=== PATIENT | female | born 1995 | race Caucasian/White ===

== ENCOUNTER 2017-03-06 21:45 | Outpatient (CLI) | payer OTHER ==
[~2017-03-06] VITALS: Ht 161.3 cm; Wt 123.6 kg
[~2017-03-06 21:45] MED LIST: CIPR500T4 PO; HYDR-3498 PO; ONDA4TAB35 PO; [UNRECOGNIZED DRUG - REMARK]
[2017-03-06] MEDS ORDERED: PREN1TAB79 PO (21:50)
[2017-03-06 21:51] VITALS: Ht 161.3 cm; Wt 123.6 kg
[2017-03-06 21:58] VITALS: BP 127/60; PULSE 97; RESP 20
--- NOTE | 2017-03-06 22:13 | PN ---
Date/Time of Note Date/Time of Note DATE: 03/06/17 TIME: 21:58 OB Subjective Subjective Subjective 21 yo P1 @ 36 wks, presents w abdominal and back pain no VB, no LOF, no ctx, good FM OB Objective Objective Objective Nml VS abdomen- gravid, n/t SVE- to be performed by nurse FHT- Cat I [place]- no ctx Abdomen: WNL Accelerations: Accelerations Present Decelerations: No Decelerations Varibility: Moderate Contractions on Admission: None OB Assessment/Plan Other Assessment: 21 yo P1 @ 36 wks, w back pain - reassuring status - not in labor Other plan: patient is 1/l/p not candido; reassuring status d/c home after 20 min NST LEXII SALAZAR MD Mar 06, 2017 22:13
--- NOTE | 2017-03-06 22:37 | TRIAGE ---
OB Triage Datetime Report Generated by CPN: 03/06/2017 22:37 Datetime: 03/06/2017 22:02 Vaginal Exam Dilatation (cms): 0.0 Effacement (%): 50 Station: -4 Exam By: CHARMAINE Hanson Membrane Status: Intact Vaginal Bleeding: None Cervix, Consistency: Moderate Cervix, Position: Posterior Datetime: 03/06/2017 21:56 Stage of : OB Triage Assessment Type: Triage Maternal Assessment Level of Consciousness: Fully Conscious DTR's/Clonus: DTRs 2+; No Clonus Headache: Denies Blurred Vision: No Respiratory Effort: Unlabored; Regular Rhythm; Equal Expansion Breath Sounds, Left: Clear and Equal Breath Sounds, Right: Clear and Equal Nausea/Vomiting: Denies RUQ Epigastric Pain: Denies Lower Extremities Edema: Bilateral Lower Extremities Degree: 1+ Upper Extremities Edema: None Degree: None Facial Edema: None Temperature Route: Oral Fall Risk Assessment History of Falling: (0) No Secondary Diagnosis: (0) No Ambulatory Aid: (0) Bedrest/Nurse Assist IV Therapy: (0) No Gait: (0) Normal/Bedrest/Immobile Mental Status: (0) Oriented to Own Ability Fall Score: 0 Fall Risk Score Definition: No Risk: No action required Datetime: 03/06/2017 21:55 Labor Evaluation Monitor Mode: External Contraction Comments: [place] applied Heart Rate FHR Baseline Rate: 155 Monitor Mode: External US Comments: EFM applied Datetime: 03/06/2017 21:48 Time of Arrival: 03/06/2017 21:40 EGA: 36.0 Arrived By: Ambulatory Arrived From: Home Chief Complaint: Constant abd pain _ pressure Movement: Present Contractions: Denies/Absent Rupture of Membranes: Denies Vaginal Bleeding: None Vaginal Discharge: Denies Recent Sexual Intercouse: Denies Abdominal Trauma: Not Applicable Patient Complaints: Other Time Provider Notified: 03/06/2017 21:43 Provider Notified: Initial Plan: SUN GIBBS
== END 2017-03-06 22:30 | disposition home or self-care (01) ==
LOC: OBT 21:45 → L-D 21:46 → OBT 22:30
PROVIDERS: ATTEND Obstetrics & Gynecology
DX: O26.893 Other specified pregnancy related conditions, third trimester (principal); R10.9 Unspecified abdominal pain; M54.9 Dorsalgia, unspecified; Z3A.36 36 weeks gestation of pregnancy
CPT/HCPCS: 59025; Z7500; G0463

== ENCOUNTER 2017-04-03 12:56 | Outpatient (CLI) | payer OTHER ==
[~2017-04-03] VITALS: Ht 160 cm; Wt 122.6 kg
[~2017-04-03 12:56] MED LIST changes: -CIPR500T4 PO; -HYDR-3498 PO; -ONDA4TAB35 PO; +PREN1TAB79 PO; -[UNRECOGNIZED DRUG - REMARK]
--- NOTE | 2017-04-03 14:16 | CONS ---
Date/Time of Note Date/Time of Note DATE: 04/03/17 TIME: 14:13 Assessment/Plan Assessment/Plan Additional Assessment/Plan 21 y/o at 40 weeks with contractions -recheck cervix in 1-2 hours -discharge home if not in active labor -f/u with OB clinic Consultation Date/Type/Reason Admit Date/Time Reason for Consultation Contractions Hx of Present Illness 21 y/o at 40 weeks who presents with contractions. Denies LOF, VB, dysuria. +FM. Getting PNC at [facility] but wants to deliver here. h/ o x1. Per HPI. Other systems negative. Past Medical History Medical History: no pertinent history Past Surgical History Past Surgical Hx: no surgical history Social History Denies habits. Exam/Review of Systems Exam Gen: NAD HEENT: NCAT CV: RRR Pulm: CTAB Abd: gravid, NT Back: no CVAT Ext: NT SVE: 1/long/-2 FHT: reactive [place]: irregular MOHAN Andrews April 03, 2017 14:16
[2017-04-03 14:21] VITALS: BP 116/56; PULSE 65; RESP 18; Ht 160 cm; Wt 122.6 kg
--- NOTE | 2017-04-03 15:58 | RADRPT ---
PROCEDURE: US OB biophysical profile. CLINICAL INDICATION: decreased movements, pain TECHNIQUE: Multiple sonographic images of the pelvis were obtained. The images were reviewed on a PACS workstation. COMPARISON: No prior studies are available for comparison. FINDINGS: There is a single viable intrauterine gestation. Cardiac activity is present with 134 beats per min kane. There is a vertex presentation. The placenta is fundal. There is no evidence of placental abruption. There is a normal amount of amniotic fluid with an MIGUEL = 10.4 cm. Biophysical profile: movement 2/2 tone 2/2. breathing 2/2 MIGUEL 2/2 Total 06/30 RPTAT: AA . IMPRESSION: Normal biophysical profile. . .Mati Callahan MD, Date Time Electronically viewed and signed by .Mati Callahan MD, MD on 04/03/2017 15:57 .S/
--- NOTE | 2017-04-03 17:02 | TRIAGE ---
OB Triage Datetime Report Generated by CPN: 04/03/2017 17:02 Datetime: 04/03/2017 14:03 Labor Evaluation Frequency: 4-5 Monitor Mode: External Duration (sec)2399: 50-70 Quality: Moderate Pattern: Normal: <= 5 Contractions in 10 Minutes Resting Tone [place]: Relaxed Contraction Comments: nst reactive for gestational age Heart Rate FHR Baseline Rate: 135 Monitor Mode: External US Variability: Moderate 6-25 bpm Accelerations: 15X15 Decelerations: None Category: Category I Datetime: 04/03/2017 13:45 Time of Arrival: 04/03/2017 12:54 EGA: 39.3 Arrived By: Ambulatory Arrived From: Home Chief Complaint: UC'S /VAGINAL PRESSURE Movement: Present Contractions: Irregular Rupture of Membranes: Denies Vaginal Bleeding: None Vaginal Discharge: Denies Recent Sexual Intercouse: Denies Abdominal Trauma: Not Applicable Patient Complaints: Contractions; Back Pain Time Provider Notified: 04/03/2017 13:15 Provider Notified: DR. CARVER Initial Plan: SVE, BPP, NST Datetime: 04/03/2017 13:00 Stage of : OB Triage Maternal Assessment Level of Consciousness: Fully Conscious DTR's/Clonus: DTRs 2+; No Clonus Headache: Denies Blurred Vision: No Respiratory Effort: Unlabored; Regular Rhythm; Equal Expansion Breath Sounds, Left: Clear and Equal Breath Sounds, Right: Clear and Equal Nausea/Vomiting: Denies RUQ Epigastric Pain: Denies Lower Extremities Edema: Bilateral Lower Extremities Degree: 1+ Upper Extremities Edema: None Degree: None Facial Edema: None Temperature Route: Axillary Fall Risk Assessment History of Falling: (0) No Secondary Diagnosis: (0) No Ambulatory Aid: (0) Bedrest/Nurse Assist IV Therapy: (0) No Gait: (0) Normal/Bedrest/Immobile Mental Status: (0) Oriented to Own Ability Fall Score: 0 Fall Risk Score Definition: No Risk: No action required Datetime: 03/06/2017 22:22 Stage of : OB Triage Labor Evaluation Frequency: Occasional Monitor Mode: External Duration (sec)2399: 40 Quality: Mild Pattern: Normal: <= 5 Contractions in 10 Minutes Resting Tone [place]: Relaxed Heart Rate FHR Baseline Rate: 155 Monitor Mode: External US Variability: Moderate 6-25 bpm Accelerations: 15X15 Decelerations: None Category: Category I Datetime: 03/06/2017 22:15 Stage of : OB Triage Datetime: 03/06/2017 21:56 Fall Score: 0 Fall Risk Score Definition: No Risk: No action required Pain Assessment Pain Scale: 4 Pain Presence: Constant Pain Type: Pressure; Ache Pain Location: Abdomen Pain Relief Measures: Comfort Measures Datetime: 03/06/2017 21:48 EGA: 35.3
== END 2017-04-03 15:55 | disposition home or self-care (01) ==
LOC: OBT 12:56 → L-D 12:57 → OBT 15:55
PROVIDERS: ATTEND Obstetrics & Gynecology
DX: O62.9 Abnormality of forces of labor, unspecified (principal); Z3A.40 40 weeks gestation of pregnancy
CPT/HCPCS: 76818; Z7500; G0463

== ENCOUNTER 2017-04-04 06:57 | Inpatient (IN) | payer OTHER ==
[~2017-04-04] VITALS: Ht 167.6 cm; Wt 122.7 kg
[2017-04-04 07:29] VITALS: BP 126/61; PULSE 70; RESP 18
[2017-04-04] MEDS ORDERED: METHYLERGONOVINE 0.2 MG INJ IM PRN ×2 (08:00→15:00)
[2017-04-04] MEDS ORDERED: LACTATED RINGER'S 1,000 ML IV PRN (08:00)
[2017-04-04] MEDS ORDERED: CARBOPROST 250 MCG INJ IM PRN ×2 (08:00→15:00)
[2017-04-04] MEDS ORDERED: BUTORPHANOL 2 MG INJ IV PRN (08:00)
[2017-04-04] MEDS ORDERED: OXYTOCIN 30 UNITS/LR 500 ML IV SCH ×2 (08:00)
[2017-04-04] MEDS ORDERED: LIDOCAINE 1% (MPF) 30 ML INJ INJ PRN (08:00)
[2017-04-04] MEDS ORDERED: OXYTOCIN 30 UNITS/LR 500 ML IV PRN ×2 (08:00→15:00)
[2017-04-04] MEDS ORDERED: MISOPROSTOL 200 MCG TAB PR PRN ×2 (08:00→15:00)
[2017-04-04] MEDS ORDERED: AMPICILLIN 2 GM/NS (PMX) 100 ML IV ONE (08:00)
[2017-04-04] MEDS ORDERED: IBUPROFEN 600 MG TAB PO PRN (08:00)
[2017-04-04] MEDS: LACTATED RINGER'S 1,000 ML IV SCH ×3 (08:13→23:32)
[2017-04-04 08:16] LABS: ADD SCAN DIFF NO
[2017-04-04 08:21] LABS: ABNORMAL IP MESSAGE 1; BASOPHILS % 0.3 % (0.0-2.0); EOSINOPHILS # 0.2 10^3/ul (0.0-0.5); EOSINOPHILS % 1.2 % (0.0-7.0); HEMATOCRIT 32.9 % (37.0-47.0); HEMOGLOBIN 9.2 g/dl (12.0-16.0); LYMPHOCYTES # 2.8 10^3/ul (0.8-2.9); LYMPHOCYTES % 22.3 % (15.0-51.0); MEAN CORPUSCULAR HEMOGLOBIN 18.4 pg (29.0-33.0); MEAN CORPUSCULAR VOLUME 65.7 fl (82.0-101.0); MEAN PLATELET VOLUME 9.9 fl (7.4-10.4); MONOCYTE # 0.8 10^3/ul (0.3-0.9); MONOCYTES % 6.1 % (0.0-11.0); NEUTROPHIL # 8.6 10^3/ul (1.6-7.5); NEUTROPHILS % 69.6 % (39.0-77.0); PLATELET COUNT 432 10^3/UL (140-415); RED BLOOD COUNT 5.01 10^6/ul (4.20-5.40); RED CELL DISTRIBUTION WIDTH 18.7 % (11.5-14.5); WHITE BLOOD COUNT 12.4 10^3/ul (4.8-10.8)
[2017-04-04 08:39] LABS: INR 0.91; PROTIME 12.3 Sec (12.2-14.2)
[2017-04-04 08:40] LABS: PARTIAL THROMBOPLASTIN TIME 30.2 Sec (25.0-35.0)
[2017-04-04 09:24] LABS: ALBUMIN 3.4 g/dl (3.3-4.9); ALBUMIN/GLOBULIN RATIO 0.89; BILIRUBIN,INDIRECT 0.1 mg/dl (0-1.1); BILIRUBIN,TOTAL 0.1 mg/dl (0.2-1.3); CALCIUM 9.1 mg/dl (8.4-10.2); CREATININE 0.51 mg/dl (0.44-1.00); POTASSIUM 4.1 mmol/L (3.5-5.1); TOTAL PROTEIN 7.2 g/dl (6.1-8.1); URIC ACID 3.4 mg/dl (3.1-7.9)
--- NOTE | 2017-04-04 09:38 | RADRPT ---
PROCEDURE: US Limited OB. CLINICAL INDICATION: Estimated weight. TECHNIQUE: Multiple sonographic images of the pelvis were obtained. Transabdominal imaging only w as performed. COMPARISON: None. FINDINGS: Cardiac activity is present with 126 beats per minute. Presentation is vertex. Measurements were made in order to determine age. The results are as follows: BPD = 38 w 4 d HC = 38 w 4 d AC = 39 w 5 d FL = 39 w 2 d Estimated weight is 3748 g. The placenta is anterior, with no evidence of previa. IMPRESSION: 1. Single, live intrauterine with estimated age of 39 weeks, 0 days. 2. Estimated weight: 3748 g, 59%. RPTAT: EE .Abhinav Durbin MD, MD Date Time Electronically viewed and signed by .Abhinav Durbin MD, on 04/04/2017 09:42 .C/
[2017-04-04 09:43] LABS: BARBITURATES NEGATIVE (NEGATIVE); BENZODIAZEPINES NEGATIVE (NEGATIVE); CANNABINOIDS NEGATIVE (NEGATIVE); COCAINE NEGATIVE (NEGATIVE); OPIATES NEGATIVE (NEGATIVE)
[2017-04-04] MEDS ORDERED: FENTAnyl 50 MCG/ML VIAL ONE (10:18)
[2017-04-04] MEDS ORDERED: FENTAnyl 2MCG/ML-ROPIV 0.2% 100 ML ONE (10:18)
--- NOTE | 2017-04-04 10:49 | TRIAGE ---
OB Triage Datetime Report Generated by CPN: 04/04/2017 10:49 Datetime: 04/04/2017 10:40 Stage of : Labor Frequency: 3-5 Monitor Mode: External Duration (sec)2399: 65-80 Quality: Moderate Pattern: Normal: <= 5 Contractions in 10 Minutes Resting Tone [place]: Relaxed FHR Baseline Rate: 140 Monitor Mode: External US FHR Baseline Changes: No Baseline Change Variability: Moderate 6-25 bpm Accelerations: 10X10 Decelerations: Variable Category: Category II Datetime: 04/04/2017 10:35 Comments: 16 fr [place] inserted Dilatation (cms): 4.0 Effacement (%): 90 Station: -3 Exam By: mj Datetime: 04/04/2017 10:20 Frequency: 3-5 Monitor Mode: External Duration (sec)2399: 65-80 Quality: Moderate Pattern: Normal: <= 5 Contractions in 10 Minutes Resting Tone [place]: Relaxed FHR Baseline Rate: 140 Monitor Mode: External US FHR Baseline Changes: No Baseline Change Variability: Moderate 6-25 bpm Accelerations: 10X10 Decelerations: Variable Category: Category II Datetime: 04/04/2017 10:08 Comments: BACK TO POSITION Datetime: 04/04/2017 09:42 Comments: UNNABLE TO MONITOR IN SITTING POSITION Datetime: 04/04/2017 09:05 Frequency: IRREGULAR Monitor Mode: External Duration (sec)2399: 50-70 Quality: Mild Pattern: Normal: <= 5 Contractions in 10 Minutes Resting Tone [place]: Relaxed FHR Baseline Rate: 130 Monitor Mode: External US FHR Baseline Changes: No Baseline Change Variability: Moderate 6-25 bpm Accelerations: 15X15 Decelerations: None Category: Category I Datetime: 04/04/2017 08:38 Level of Consciousness: Fully Conscious DTR's/Clonus: DTRs 2+ Headache: Denies Blurred Vision: No Respiratory Effort: Unlabored Breath Sounds, Left: Clear and Equal Breath Sounds, Right: Clear and Equal Nausea/Vomiting: Denies RUQ Epigastric Pain: Denies Facial Edema: None Frequency: 4-6 Monitor Mode: External Duration (sec)2399: 30-40 Quality: Moderate Pattern: Normal: <= 5 Contractions in 10 Minutes Resting Tone [place]: Relaxed FHR Baseline Rate: 130 Monitor Mode: External US Variability: Moderate 6-25 bpm Accelerations: 15X15 Category: Category I Comments: u/s done, back on monitor Pain Scale: 9 Pain Presence: Intermittent Pain Type: Contraction Pain Location: Abdomen Pain Goal: 6 Pain Relief Measures: Comfort Measures Pain Assessment Comments: stadol 2mg given Dilatation (cms): 4.0 Effacement (%): 90 Station: 0 Exam By: franny calhoun rn Membrane Status: Intact Vaginal Bleeding: Normal Show Cervix, Consistency: Soft Cervix, Position: Midposition Presentation 'A': Cephalic Datetime: 04/04/2017 08:18 FHR Baseline Rate: 140 Monitor Mode: External US FHR Baseline Changes: No Baseline Change Variability: Moderate 6-25 bpm Accelerations: 15X15 Decelerations: None Category: Category I Datetime: 04/04/2017 08:14 Dilatation (cms): 4.5 Effacement (%): 90 Station: -1 Exam By: lj herndon Vaginal Bleeding: Scant Cervix, Consistency: Soft Cervix, Position: Anterior Presentation 'A': Cephalic Datetime: 04/04/2017 08:07 Headache: Denies Blurred Vision: No Facial Edema: None Pattern: Normal: <= 5 Contractions in 10 Minutes FHR Baseline Rate: 145 Monitor Mode: External US FHR Baseline Changes: No Baseline Change Variability: Moderate 6-25 bpm Accelerations: 15X15 Decelerations: None Category: Category I Comments: loss of contact due to position Membrane Status: Intact Datetime: 04/04/2017 08:05 Stage of : Labor Assessment Type: Admission Assessment Vaginal Bleeding: None Level of Consciousness: Fully Conscious DTR's/Clonus: DTRs 2+; No Clonus Headache: Denies Blurred Vision: No Respiratory Effort: Unlabored; Regular Rhythm; Equal Expansion Breath Sounds, Left: Clear and Equal Breath Sounds, Right: Clear and Equal Nausea/Vomiting: Denies RUQ Epigastric Pain: Denies Lower Extremities Edema: Bilateral Lower Extremities Degree: 1+ Upper Extremities Edema: None Degree: None Facial Edema: None History of Falling: (0) No Secondary Diagnosis: (0) No Ambulatory Aid: (0) Bedrest/Nurse Assist IV Therapy: (0) No Gait: (0) Normal/Bedrest/Immobile Mental Status: (0) Oriented to Own Ability Fall Score: 0 Fall Risk Score Definition: No Risk: No action required Frequency: 3 Duration (sec)2399: 60 Quality: Moderate Pattern: Normal: <= 5 Contractions in 10 Minutes Resting Tone [place]: Relaxed FHR Baseline Rate: 145 Variability: Moderate 6-25 bpm Accelerations: 15X15 Decelerations: None Category: Category I Pain Scale: 8 Pain Presence: Intermittent Pain Type: Contraction Pain Location: Abdomen Membrane Status: Intact Datetime: 04/04/2017 07:40 Frequency: 4-5 Monitor Mode: External Duration (sec)2399: 60-90 Quality: Mild Pattern: Normal: <= 5 Contractions in 10 Minutes Resting Tone [place]: Relaxed FHR Baseline Rate: 130 Datetime: 04/04/2017 07:18 Stage of : OB Triage Assessment Type: Transfer/Discharge Level of Consciousness: Fully Conscious Headache: Denies Blurred Vision: No Respiratory Effort: Unlabored; Regular Rhythm; Equal Expansion Breath Sounds, Left: Clear and Equal Breath Sounds, Right: Clear and Equal Nausea/Vomiting: Denies RUQ Epigastric Pain: Denies Lower Extremities Edema: None Degree: None Upper Extremities Edema: None Degree: None Facial Edema: None Temperature Route: Oral History of Falling: (0) No Secondary Diagnosis: (0) No Ambulatory Aid: (0) Bedrest/Nurse Assist IV Therapy: (0) No Gait: (0) Normal/Bedrest/Immobile Mental Status: (0) Oriented to Own Ability Fall Score: 0 Fall Risk Score Definition: No Risk: No action required Pain Scale: 10 Pain Presence: Intermittent Pain Type: Contraction; Pressure Pain Location: Back Datetime: 04/04/2017 07:16 Time of Arrival: 04/03/2017 06:54 EGA: 39.3 Arrived By: Wheelchair Arrived From: Home Chief Complaint: CTX FROM 0500 Movement: Absent Contractions: Regular Time Contractions Began: 04/04/2017 05:00 Contractions: 10 Rupture of Membranes: Denies Vaginal Bleeding: Normal Show Vaginal Discharge: Present Recent Sexual Intercouse: Denies Abdominal Trauma: Not Applicable Patient Complaints: Contractions; Other Additional Patient Complaints: NO MOVEMENT FROM AROUND 0500 Time Provider Notified: 04/04/2017 07:20 Provider Notified: DR. DENNEY Initial Plan: EFM x2, SVE Datetime: 04/04/2017 07:10 Dilatation (cms): 3.0 Effacement (%): 80 Station: -2 Exam By: OSWALDO Vaginal Bleeding: None Cervix, Consistency: Soft Cervix, Position: Midposition Presentation 'A': Cephalic Datetime: 04/04/2017 07:08 Stage of : OB Triage Datetime: 04/04/2017 07:04 Stage of : OB Triage Datetime: 04/03/2017 15:12 Frequency: 5-7 Monitor Mode: External Duration (sec)2399: 60-80 Quality: Mild Pattern: Normal: <= 5 Contractions in 10 Minutes Resting Tone [place]: Relaxed FHR Baseline Rate: 135 Monitor Mode: External US Variability: Moderate 6-25 bpm Accelerations: 15X15 Decelerations: None Category: Category I Datetime: 04/03/2017 13:45 EGA: 39.3 Datetime: 04/03/2017 13:00 Fall Score: 0 Fall Risk Score Definition: No Risk: No action required Datetime: 03/06/2017 21:56 Fall Score: 0 Fall Risk Score Definition: No Risk: No action required Datetime: 03/06/2017 21:48 EGA: 35.3
--- NOTE | 2017-04-04 10:52 | HP ---
Date/Time of Note Date/Time of Note DATE: 04/04/17 TIME: 10:47 OB - History Hx of Present Free Text/Dictation Patient is a 21-year-old 2 para 1 at 39+4 weeks of gestation She presents in active labor; candido every 5 minutes, no leaking fluid, no vaginal bleeding Patient presents with mildly elevated blood pressures Patient has had care PROCEDURE: US Limited OB. CLINICAL INDICATION: Estimated weight. TECHNIQUE: Multiple sonographic images of the pelvis were obtained. Transabdominal imaging only was performed. COMPARISON: None. FINDINGS: Cardiac activity is present with 126 beats per minute. Presentation is vertex. Measurements were made in order to determine age. The results are as follows: BPD = 38 w 4 d HC = 38 w 4 d AC = 39 w 5 d FL = 39 w 2 d Estimated weight is 3748 g. The placenta is anterior, with no evidence of previa. IMPRESSION: 1. Single, live intrauterine with estimated age of 39 weeks, 0 days. 2. Estimated weight: 3748 g, 59%. RPTAT: EE .Abhinav Durbin MD, Date Time Electronically viewed and signed by .Abhinav Durbin MD, MD on 04/04/2017 09:42 .C/ CC: PATRICK DENNEY MD : 2 Para: 1 Obstetrical Complications: None Past Family/Social History * Past Medical, Surgical, Family and Obstetric Histories reviewed from chart. GBS Status: Unknown OB Admission Exam Vital Signs Vital Signs Vital Signs Date Time Temp Pulse Resp B/P Pulse Ox O2 Delivery O2 Flow Rate FiO2 04/04/17 07:29 98.0 70 18 126/61 98 Room Air Physical Exam HEENT: WNL Heart: Rhythm Normal Lungs: Clear, Equal Abdomen: WNL Extremities: Normal Reflexes: Normal Cervical Dilatation: 4cm Effacement: 75% Station: -3 Membranes: Intact Heart Rate: 130's Accelerations: Accelerations Present Decelerations: No Decelerations Varibility: Moderate Contractions on Admission: < 5 Minutes Apart Last 72 hours Lab Results CBC & BMP 04/04/17 08:08 Liver Function Test 04/04/17 08:08 Alanine Aminotransferase (ALT/SGPT) 37 Albumin 3.4 Alkaline Phosphatase 217 H Aspartate Amino Transf (AST/SGOT) 30 Direct Bilirubin 0.00 Total Protein 7.2 OB Assessment/Plan Reason for admission: active labor Plan: Expectant Management Induction Method: per Pitocin Protocol Other plan: We will obtain all labs and PIH labs Antibiotics for GBS prophylaxis Epidural anesthesia as needed Anticipate normal spontaneous vaginal delivery PATRICK DENNEY MD April 04, 2017 10:52
[2017-04-04] MEDS ORDERED: FENTAnyl 2MCG/ML-ROPIV 0.2% 100 ML BAG EPI SCH (12:00)
[2017-04-04] MEDS ORDERED: AMPICILLIN 1 GM/NS (PMX) 50 ML IV SCH (12:00)
[2017-04-04] MEDS ORDERED: NALOXONE (0.4 MG/ML) INJ IV PRN (12:00)
[2017-04-04] MEDS: LACTATED RINGER'S 1,000 ML IV* SCH ×2 (14:43→22:43)
--- NOTE | 2017-04-04 14:43 | LDN ---
Date/Time of Note Date/Time of Note DATE: 04/04/17 TIME: 14:39 Delivery Summary baby weight 3490 grams/ 7lbs 11 oz Weeks of Gestation at 39+ wks gestation Placenta Delivered: Spontaneously Meconium: Light Episiotomy: No Laceration repair: First degree laceration repaired with 2.0 vicryl Anesthesia type: Epidural Estimated blood loss: 200 Sponge & Needle done & correct: Yes All needle counts correct: Yes Any foreign bodies felt in the: No Problems: Delivery Information Sex Sex: male Apgars 1 Minute: 9 5 Minute: 9 Suctioning Nose & mouth suctioned at melina: Yes Umbilical Cord Umbilical cord with: 3 Vessels Cord presentations: no nuchal cord Cord Blood was obtained: Yes PATRICK DENNEY MD April 04, 2017 14:43
[2017-04-04] MEDS ORDERED: ONDANSETRON 4 MG INJ IV PRN (15:00)
[2017-04-04] MEDS ORDERED: WITCH HAZEL/GLYCERIN PAD PR PRN (15:00)
[2017-04-04] MEDS ORDERED: BENZOCAINE 20% 56 ML SPRAY TOP PRN (15:00)
[2017-04-04] MEDS ORDERED: ACETAMINOPHEN 325 MG TAB PO PRN ×2 (15:00)
[2017-04-04] MEDS ORDERED: LANOLIN 7 GM TUBE TOP PRN (15:00)
[2017-04-04] MEDS ORDERED: DIBUCAINE 1% 30 GM OINT PR PRN (15:00)
[2017-04-04] MEDS: OXYTOCIN 30 UNITS/LR 500 ML IV SCH ×2 (15:24→18:43)
[2017-04-04 16:28] VITALS: BP 124/58; PULSE 69; RESP 20
[2017-04-04] MEDS: IBUPROFEN 600 MG TAB PO SCH ×2 (18:06→23:19)
[2017-04-04 20:00] VITALS: BP 127/59; PULSE 68; RESP 20
[2017-04-05 04:23] VITALS: BP 119/64; PULSE 70; RESP 20
[2017-04-05] MEDS: IBUPROFEN 600 MG TAB PO SCH ×4 (05:45→23:26)
[2017-04-05] MEDS: LACTATED RINGER'S 1,000 ML IV* SCH ×3 (06:43→22:43)
[2017-04-05 07:27] LABS: ADD SCAN DIFF NO
[2017-04-05] MEDS: LACTATED RINGER'S 1,000 ML IV SCH ×3 (07:32→23:32)
[2017-04-05 07:41] LABS: ABNORMAL IP MESSAGE 1; BASOPHILS % 0.3 % (0.0-2.0); EOSINOPHILS # 0.2 10^3/ul (0.0-0.5); EOSINOPHILS % 1.3 % (0.0-7.0); HEMATOCRIT 27.3 % (37.0-47.0); HEMOGLOBIN 7.7 g/dl (12.0-16.0); LYMPHOCYTES # 4.1 10^3/ul (0.8-2.9); LYMPHOCYTES % 34.6 % (15.0-51.0); MEAN CORPUSCULAR HEMOGLOBIN 18.9 pg (29.0-33.0); MEAN CORPUSCULAR HGB CONC 28.2 g/dl (32.0-37.0); MEAN CORPUSCULAR VOLUME 66.9 fl (82.0-101.0); MEAN PLATELET VOLUME 10.6 fl (7.4-10.4); MONOCYTE # 0.8 10^3/ul (0.3-0.9); MONOCYTES % 6.3 % (0.0-11.0); NEUTROPHIL # 6.8 10^3/ul (1.6-7.5); NEUTROPHILS % 57.2 % (39.0-77.0); PLATELET COUNT 350 10^3/UL (140-415); RED BLOOD COUNT 4.08 10^6/ul (4.20-5.40); RED CELL DISTRIBUTION WIDTH 18.5 % (11.5-14.5); WHITE BLOOD COUNT 11.9 10^3/ul (4.8-10.8)
[2017-04-05 08:22] VITALS: BP 123/69; RESP 20
[2017-04-05] MEDS: MAGNESIUM HYDROXIDE 30ML CUP PO PRN ×2 (09:32→23:32)
--- NOTE | 2017-04-05 09:52 | QN ---
Documentation Comment PPD#1 +BM +voids No vaginal bleeding no complaints vs stable afebrile abd soft nt no distention extremity no edema calf tenderness -->dischargeplan tomorrow BRISEYDA COCHRAN M.D. April 05, 2017 09:52
[2017-04-05 16:36] VITALS: BP 121/58; PULSE 65; RESP 18
[2017-04-05 20:00] VITALS: BP 114/53; PULSE 67; RESP 20
[2017-04-06 04:04] VITALS: BP 118/62; PULSE 70; RESP 20
[2017-04-06] MEDS: IBUPROFEN 600 MG TAB PO SCH ×2 (05:33→13:33)
[2017-04-06] MEDS: LACTATED RINGER'S 1,000 ML IV* SCH (06:43)
[2017-04-06 08:15] VITALS: BP 117/56; PULSE 70; RESP 16
--- NOTE | 2017-04-06 15:13 | DS ---
Date/Time of Note Date/Time of Note DATE: 04/06/17 TIME: 15:13 Obstetrical Discharge Record Final Diagnosis Final Diagnosis: Term delivered Vaginal Delivery Obstetrical Delivery: Spontaneous Condition on Discharge Physical Assessment Voiding: Yes Bowel Movement: Yes Breast: Soft, non-tender Fundus: Firm Calf Tenderness: No Patient Condition: Stable RAYSHAWN MORA MD April 06, 2017 15:13
[2017-04-06 16:30] VITALS: BP 115/67; PULSE 68; RESP 14
[2017-04-07 14:55] LABS: RUBELLA ANTIBODY - IGG 2.25 index
== END 2017-04-06 18:25 | disposition home or self-care (01) | DRG 775 ==
LOC: OBT 06:57 → L-D 06:58 → OBT 07:40 → L-D 07:41 → PP1 15:59
PROVIDERS: ADMIT Obstetrics & Gynecology Gynecology; ATTEND Obstetrics & Gynecology Gynecology
PROC: 10E0XZZ Delivery of Products of Conception, External Approach (ICD-10-PCS; principal; 2017-04-04)
PROC: 0HQ9XZZ Repair Perineum Skin, External Approach (ICD-10-PCS; 2017-04-04)
DX: O70.0 First degree perineal laceration during delivery (principal); Z37.0 Single live birth; Z3A.39 39 weeks gestation of pregnancy
CPT/HCPCS: 62319; 76815; 80053; 80307; 84560; 85025; 85610; 85730; 86592; 86703; 86762; 86850; 86900; 86901; 87340; G0463; J0290; J2590; J3010; J7120

== ENCOUNTER 2019-02-17 16:10 | Emergency (ER) | payer OTHER ==
[~2019-02-17] VITALS: Ht 167.6 cm; Wt 130.9 kg
[2019-02-17 16:14] VITALS: BP 149/84; PULSE 88; RESP 20; Ht 167.6 cm; Wt 130.9 kg
[2019-02-17] MEDS ORDERED: KETOROLAC 60 MG INJ IM STA (17:37)
[2019-02-17] MEDS ORDERED: NAPR-985 PO (17:47)
[2019-02-17] MEDS ORDERED: OFLO5DRO7 BOTH EARS (17:47)
--- NOTE | 2019-02-19 21:29 | ERD ---
ER Documentation Chief Complaint Chief Complaint Complains of a headache with bilateral ear pain x 2 days HPI 23-year-old female patient with no significant past medical history presents to ED complaining of bilateral ear pain that started 2 days ago 1 as well as headache. Patient reports that she has not taking any medications for symptoms. Denies any nausea, vomiting, diarrhea, neck stiffness. Denies any head or neck injuries. Denies any recent swimming. Denies any use of Q-tips. ROS All systems reviewed and are negative except as per history of present illness. Medications Home Meds Active Scripts Naproxen* (Naprosyn*) 500 Mg Tablet, 500 MG PO BID PRN for PAIN AND/OR INFLAMMATION, #30 TAB Prov:BRIDGET GTZ PA-C 02/17/19 Ofloxacin Otic (Ofloxacin Otic) 5 Ml Drops, 10 DROP BOTH EARS DAILY for 7 Days, #1 BOTTLE Prov:BRIDGET GTZ PA-C 02/17/19 Allergies Allergies: Coded Allergies: No Known Allergy (Unverified , 04/03/17) PMhx/Soc Hx Alcohol Use: No Hx Substance Use: No Hx Tobacco Use: No FmHx Family History: No diabetes, No coronary disease Physical Exam Vitals Vital Signs Date Temp Pulse Resp B/P (MAP) Pulse Ox O2 O2 Flow FiO2 Time Delivery Rate 02/17/19 98.6 88 20 149/84 97 16:14 (105) Physical Exam Const: [id number], well-nourished. In no acute distress. Head: Atraumatic, normocephalic Eyes: Normal Conjunctiva without injection. No purulent discharge. PERRLA. EOMI ENT: Normal external ear. Ear canal without erythema. Tympanic membrane pearly sheffield without effusion or bulging. Tenderness palpation of the bilateral tragus with no tenderness palpation of the mastoid. Nasal canal clear with normal turbinates. Moist oropharynx without tonsillar exudates. Non-erythematous pharynx. Uvula midline. No drooling. No trismus. Neck: No cervical midline tenderness. Full range of motion. No meningismus. No cervical lymphadenopathy. No JVD. Resp: Clear to auscultation bilaterally. No wheezing, rhonchi, rales, or crackles. No accessory muscle use. No retractions. Cardio: Regular rate and rhythm. No murmurs, rubs or gallops. Abd: Soft, non tender, non distended. Normal bowel sounds. No palpable masses. No rebound tenderness. No guarding. Negative McBurney's Point. Negative Bhagat's Sign. Skin: Normal skin turgor. No petechiae or rashes Back: No midline tenderness. No CVA tenderness. Ext: No cyanosis, or edema. Distal pulses intact bilaterally. Neur: Awake and alert. Normal gait. Normal coordination. Cranial Nerves II- VII intact. Normal finger to nose. Muscle strength 5/5. Sensation intact. Psych: Normal Mood and Affect Results 24 hrs Laboratory Tests Test 02/17/19 17:44 POC Beta HCG, Qualitative NEGATIVE Current Medications Medications Dose Sig/Erlinda Start Time Status Last (Trade) Ordered Route PRN Stop Time Admin Dose Reason Admin Ketorolac 60 mg ONCE STAT 02/17/19 DC 02/17/19 Tromethamine IM 17:37 17:57 (Toradol) 02/17/19 17:38 Procedures/MDM 23-year-old female patient with no significant past medical history presents ED complaining of bilateral ear pain that radiates to her head that started about 2 days ago. Patient is afebrile and nontoxic-appearing. Urine negative. Patient treated here in the ED with Toradol 60 mg IM with improvement of her pain. Patient's physical exam is consistent with otitis externa. Patient does not have tenderness to palpation of mastoid. TMs are pearly sheffield with no bulging or erythema. Low suspicion for otitis media or mastoiditis. Patient's physical exam include lungs which were clear to auscultation and a normal pulse oximetry. Patient is speaking in full sentences. There is a low suspicion for tympanic membrane rupture, pneumonia, carotid dissection, viral/strep pharyngitis, sinusitis, peritonsillar abscess, intracranial bleed, subarachnoid hemorrhage, meningitis, TIA, stroke, subdural hematoma, epidural hematoma, seizures, retropharyngeal abscess, meningitis, sepsis, acute abdomen or other emergent conditions. Diagnosis: Otitis externa Discharge medications: Naproxen, Ofloxacin Follow up with primary care physician in 1-2 days. Instructed patient to return to the ED sooner for any worsening symptoms. Patient's questions were answered. Patient is hemodynamically stable. Patient understood and agreed with discharge plan. Patient discharged stable. Disclaimer: Inadvertent spelling and grammatical errors are likely due to EHR/dictation software use and do not reflect on the overall quality of patient care. Also, please note that the electronic time recorded on this note does not necessarily reflect the actual time of the patient encounter. Departure Diagnosis: Primary Impression: Otitis externa Otitis externa type: unspecified type Chronicity: unspecified Laterality: unspecified laterality Qualified Codes: H60.90 - Unspecified otitis externa, unspecified ear Condition: Stable Patient Instructions: External Ear Infection (Adult) Referrals: [facility] YOU HAVE RECEIVED A MEDICAL SCREENING EXAM AND THE RESULTS INDICATE THAT YOU DO NOT HAVE A CONDITION THAT REQUIRES URGENT TREATMENT IN THE EMERGENCY DEPARTMENT. FURTHER EVALUATION AND TREATMENT OF YOUR CONDITION CAN WAIT UNTIL YOU ARE SEEN IN YOUR DOCTORS OFFICE WITHIN THE NEXT 1-2 DAYS. IT IS YOUR RESPONSIBILITY TO MAKE AN APPOINTMENT FOR FOLOW-UP CARE. IF YOU HAVE A PRIMARY DOCTOR --you should call your primary doctor and schedule an appointment IF YOU DO NOT HAVE A PRIMARY DOCTOR YOU CAN CALL OUR PHYSICIAN REFERRAL HOTLINE AT IF YOU CAN NOT AFFORD TO SEE A PHYSICIAN YOU CAN CHOSE FROM THE FOLLOWING [facility] [address] [facility]. [facility] [address] [facility] [address] [facility]. [facility] [address] [facility]. [facility] [address] [facility]. [facility]. [address] [facility] YOU HAVE RECEIVED A MEDICAL SCREENING EXAM AND THE RESULTS INDICATE THAT YOU DO NOT HAVE A CONDITION THAT REQUIRES URGENT TREATMENT IN THE EMERGENCY DEPARTMENT. FURTHER EVALUATION AND TREATMENT OF YOUR CONDITION CAN WAIT UNTIL YOU ARE SEEN IN YOUR DOCTORS OFFICE WITHIN THE NEXT 1-2 DAYS. IT IS YOUR RESPONSIBILITY TO MAKE AN APPOINTMENT FOR FOLOW-UP CARE. IF YOU HAVE A PRIMARY DOCTOR --you should call your primary doctor and schedule and appointment IF YOU DO NOT HAVE A PRIMARY DOCTOR YOU CAN CALL OUR PHYSICIAN REFERRAL HOTLINE AT . IF YOU CAN NOT AFFORD TO SEE A PHYSICIAN YOU CAN CHOSE FROM THE FOLLOWING [facility]: [facility] [address] [place] [address] [facility] [address] [place] [address] [facility] + [facility] [address] [place] [address] [facility] Additional Instructions: Call your primary care doctor TOMORROW for an appointment during the next 2-3 days.See the doctor sooner or return here if your condition worsens before your appointment time. BRIDGET GTZ PA-C Feb 19, 2019 21:29
== END 2019-02-17 18:02 | disposition home or self-care (01) ==
LOC: FTE 16:10
DX: H60.93 Unspecified otitis externa, bilateral (principal)
CPT/HCPCS: 81025; 96372; J1885; Z7502